=== PATIENT | male | born 1970 | race Caucasian/White ===

== ENCOUNTER 2021-04-02 02:31 | Emergency (ER) | payer BC ==
[~2021-04-02] VITALS: Ht 175.3 cm; Wt 86.4 kg
--- NOTE | 2021-04-02 02:42 | PHYS DOC ---
Past History Past Medical History: Kidney Stones General Adult EDM: Chief Complaint: FLANK PAIN HPI: HPI: ".. I woke up with this severe Rt. flank pain.. about 1/2 hr.. it radiated down in my groin...".." I hurt so bad I puked..." Patient is a 50 year old male who presents with above hx and complaints right flank pain that radiates to right groin area. Patient denies any intake bad food. Patient denies any problems with defecation or urination. Pain is rated 10 out of 10. Is associated with nausea. Patient has had previous episode of similar pain years ago which was diagnosed as a kidney stone. Patient denies any history immunosuppression. Patient denies any fever or chills. No recent travel. No intake of bad food. No history of trauma. Review of Systems: Review of Systems: Constitutional: Denies fever or chills Eyes: Denies change in visual acuity HENT: Denies nasal congestion or sore throat Respiratory: Denies cough or shortness of breath Cardiovascular: Denies chest pain or edema GI: Complains of severe right flank abdominal pain, nausea, vomiting,. Denies bloody stools or diarrhea : Denies dysuria Musculoskeletal: Complains of severe right flank back pain Integument: Denies rash Neurologic: Denies headache, focal weakness or sensory changes Endocrine: Denies polyuria or polydipsia Lymphatic: Denies swollen glands Psychiatric: Denies depression or anxiety Family History: Family History: Noncontributory to presentation Current Medications: Current Meds: See nursing for home meds Allergies: Allergies: No known drug allergies Physical Exam: PE: Constitutional: in acute distress, non-toxic appearance. [] HENT: Normocephalic, atraumatic, bilateral external ears normal, oropharynx moist, no oral exudates, nose normal. [] Eyes: PERRLA, EOMI, conjunctiva normal, no discharge. [] Neck: Normal range of motion, no tenderness, supple, no stridor. [] Cardiovascular: Tachycardia heart rate regular rhythm, no murmur []. Monitor shows a sinus tachycardia Lungs & Thorax: Bilateral breath sounds equal apex with few scattered wheezes on auscultation [] Abdomen: Bowel sounds decreased, soft, no tenderness, no masses, no pulsatile masses. Right flank back pain radiates to right lower abdomen. No findings of acute rebound. Skin: Warm, diaphoretic, no erythema, no rash. [] Back: No tenderness, right CVA tenderness. [] Extremities: No tenderness, no cyanosis, no clubbing, ROM intact, no edema. No psoas sign Neurologic: Alert and oriented X 3, normal motor function, normal sensory function, no focal deficits noted. [] Psychologic: Affect anxious, judgement normal, mood normal. [] EKG: EKG: [] Radiology/Procedures: Radiology/Procedures: [place] [address] IMAGING REPORT Signed PATIENT: JEFF CALLAWAY ACCOUNT: [id number] : 1970 LOCATION: ER AGE: 50 SEX: M EXAM STATUS: REG ER ORD. PHYSICIAN: MARILU LUBIN MD REASON: severe Rt. flank pain PROCEDURE: ACUTE ABDOMEN SERIES EXAMINATION: XR ABDOMEN COMP ACUTE CLINICAL HISTORY: Severe right flank pain EXAM DATE/TIME: 04/02/2021 3:04 AM COMPARISON: None FINDINGS: Lines, Tubes, and Devices: None. Cardiomediastinal Silhouette: Within normal limits. Lungs and Pleura: No evidence of focal airspace consolidation or pleural effusion. Pulmonary vasculature unremarkable. Bones and Soft Tissues: Degenerative changes of the thoracolumbar spine. Probable old bone graft harvest site along the left ilium. Abdomen: Nonspecific bowel gas pattern. No evidence of pneumoperitoneum. Tiny calcification in the right pelvis, compatible with a distal calculus. IMPRESSION: Tiny calcification of the right pelvis, compatible with a distal calculus. No evidence of acute cardiopulmonary abnormality. Electronically signed by: Kishan Huerta DO (04/02/2021 5:11 AM) [facility] DICTATED AND SIGNED BY: KISHAN HUERTA DO DATE: 04/02/21 0509 CC: MARILU LUBIN MD; PCP,NO ~MTH0 0 [][address] [address] IMAGING REPORT Signed PATIENT: JEFF CALLAWAY ACCOUNT: [id number] : 1970 LOCATION: ER AGE: 50 SEX: M EXAM STATUS: REG ER ORD. PHYSICIAN: MARILU LUBIN MD REASON: pain Rt. flank PROCEDURE: CT ABDOMEN PELVIS WO CONTRAST EXAMINATION: CT ABDOMEN+PELVIS WO CLINICAL HISTORY: Right flank pain TECHNIQUE: Non-IV contrast imaging of the abdomen and pelvis was performed using standard technique, scanning from just above the dome of the diaphragm to the symphysis pubis. Unenhanced imaging is limited for the evaluation of some intra-abdominal and pelvic pathology. CT Dose Reduction Employed: One or more of the following individualized dose reduction techniques were utilized for this examination: 1. Automated exposure control 2. Adjustment of the mA and/or kV according to patient size 3. Use of iterative reconstruction technique. COMPARISON: None FINDINGS: Partially visualized heart and lungs unremarkable. 2.5 cm cyst in the left hepatic lobe. Gallbladder, pancreas, spleen, and adrenal glands unremarkable. 4 mm calculus at the right ureterovesical junction with mild hydroureteronephrosis. No additional urinary calculi visualized. Nonspecific bilateral perinephric stranding. Decompressed urinary bladder suboptimally evaluated. Coarse central prostatic calcifications. No dilated bowel. Normal appendix. No abdominal aortic or iliac artery aneurysm. Vasectomy clips. Mild thoracolumbar degenerative changes. Probable old bone graft harvest site along the posterior left ilium. IMPRESSION: 4 mm calculus at the right ureterovesical junction with mild hydroureteronephrosis. Electronically signed by: Kishan Huerta DO (04/02/2021 4:22 AM) [facility] DICTATED AND SIGNED BY: KISHAN HUERTA DO DATE: 04/02/21 0417 CC: MARILU LUBIN MD; PCP,NO ~MTH0 0 Heart Score: C/O Chest Pain: N/A Risk Factors: Risk Factors: DM, Current or recent (<one month) smoker, HTN, HLP, family history of CAD, obesity. Risk Scores: Score 0 - 3: 2.5% MACE over next 6 weeks - Discharge Home Score 4 - 6: 20.3% MACE over next 6 weeks - Admit for Clinical Observation Score 7 - 10: 72.7% MACE over next 6 weeks - Early Invasive Strategies Course & Med Decision Making: Course & Med Decision Making Pertinent Labs and Imaging studies reviewed. (See chart for details) Patient stay on a clear fluid diet next couple days. Push fluids. Take Tylenol and ibuprofen for pain. For marked pain may take Vicoprofen up to 4 times a day. Take Zofran 8 mg up to 4 times a day for nausea and vomiting. Take Flomax 0.4 mg daily. Warned that this may cause dizziness and hypotension. Must push fluids. Patient save stone in the past. Patient follow-up primary care. Patient consider follow-up with urology. Patient return if any concerns. Impression: 1. Right renal colic 2. 4mm stone at UVJ with Hydronephrosis [] Dragon Disclaimer: Dragon Disclaimer: This electronic medical record was generated, in whole or in part, using a voice recognition dictation system. Departure Departure: Referrals: PCP,NO (PCP) Scripts Hydrocodone/Ibuprofen (HYDROCODONE-IBUPROFEN 7.5-200 ) 1 Each Tablet 2 TAB PO PRN Q6HRS PRN for PAIN, #30 TAB 0 Refills Prov: MARILU LUBIN MD 04/02/21 Ondansetron Hcl (ZOFRAN) 4 Mg Tablet 8 MG PO QIDPRN PRN for NAUSEA/VOMITING, #30 TAB Prov: MARILU LUBIN MD 04/02/21 Tamsulosin Hcl (FLOMAX) 0.4 Mg Cap.er.24h 0.4 MG PO DAILY for renal colic, #30 CAP.SR Prov: MARILU LUBIN MD 04/02/21 Dragon Disclaimer This chart was dictated in whole or in part using Voice Recognition software in a busy, high-work load, and often noisy Emergency Department environment. It may contain unintended and wholly unrecognized errors or omissions. MARILU LUBIN MD Apr 02, 2021 02:42
[2021-04-02] MEDS ORDERED: KETOROLAC 30 MG/ML VIAL. IVP ONE ×2 (02:45→03:30)
[2021-04-02] MEDS ORDERED: ONDANSETRON PF 4 MG/2 ML VIAL. IVP ONE (03:30)
[2021-04-02] MEDS ORDERED: IV RINGERS SOLUTION,LACTATED 1,000 ML IV SCH (03:30)
[2021-04-02] MEDS ORDERED: FAMOTIDINE 20 MG/2 ML VIAL IVP ONE (03:30)
[2021-04-02 03:51] LABS: BARBITURATES NEG (NEG); BENZODIAZEPINES NEG (NEG); CANNABINOIDS NEG (NEG); COCAINE NEG (NEG); METHADONE NEG (NEG); OPIATES NEG (NEG); PHENCYCLIDINE NEG (NEG)
[2021-04-02 03:55] LABS: AMPHETAMINE/METHAMPHETAMINE NEG (NEG)
[2021-04-02 04:00] LABS: BILIRUBIN,URINE NEG (NEG); CLARITY,URINE CLEAR; COLOR,URINE YELLOW; GLUCOSE,URINE NEG (NEG); NITRITE,URINE NEG (NEG); UROBILINOGEN,URINE 0.2 mg/dL (0.2 mg/dL)
[2021-04-02 04:01] LABS: BACTERIA,URINE 0 /HPF (0-FEW); SQUAMOUS EPITHELIAL CELL,UR OCC /LPF; WBC,URINE 0 /HPF (0-4)
[2021-04-02 04:03] LABS: BASO % 1 % (0-3); EOS % 1 % (0-3); HEMATOCRIT 44.1 % (39.0-53.0); HEMOGLOBIN 15.3 g/dL (13.0-17.5); LYMPH # 1.5 x10^3/uL (1.0-4.8); LYMPH % 16 % (24-48); MEAN CORPUSCULAR HEMOGLOBIN 30 pg (25-35); MEAN CORPUSCULAR HGB CONC 35 g/dL (31-37); MEAN CORPUSCULAR VOLUME 87 fL (79-100); MONO # 0.8 x10^3/uL (0.0-1.1); MONO % 9 % (0-9); NEUT # 6.8 x10^3uL (1.8-7.7); NEUT % 74 % (31-73); PLATELET COUNT 173 x10^3/uL (140-400); RED BLOOD COUNT 5.06 x10^6/uL (4.30-5.70); RED CELL DISTRIBUTION WIDTH 13.6 % (11.5-14.5); WHITE BLOOD COUNT 9.2 x10^3/uL (4.0-11.0)
[2021-04-02 04:16] LABS: CALCIUM 9.1 mg/dL (8.5-10.1); CREATININE 1.4 mg/dL (0.7-1.3); GFR 53.2; POTASSIUM 3.4 mmol/L (3.5-5.1)
--- NOTE | 2021-04-02 04:24 | RAD ---
EXAMINATION: CT ABDOMEN+PELVIS WO CLINICAL HISTORY: Right flank pain TECHNIQUE: Non-IV contrast imaging of the abdomen and pelvis was performed using standard technique, scanning from just above the dome of the diaphragm to the symphysis pubis. Unenhanced imaging is jimenez ited for the evaluation of some intra-abdominal and pelvic pathology. CT Dose Reduction Employed: One or more of the following individualized dose reduction techniques wer e utilized for this examination: 1. Automated exposure control 2. Adjustment of the mA and/or kV ac cording to patient size 3. Use of iterative reconstruction technique. COMPARISON: None FINDINGS: Partially visualized heart and lungs unremarkable. 2.5 cm cyst in the left hepatic lobe. Gallbladder, pancreas, spleen, and adrenal glands unremarkable. 4 mm calculus at the right ureterovesical junction with mild hydroureteronephrosis. No additional uri nary calculi visualized. Nonspecific bilateral perinephric stranding. Decompressed urinary bladder suboptimally evaluated. Coarse central prostatic calcifications. No dilated bowel. Normal appendix. No abdominal aortic or iliac artery aneurysm. Vasectomy clips. Mild thoracolumbar degenerative changes. Probable old bone graft harvest site along the posterior left ilium. IMPRESSION: 4 mm calculus at the right ureterovesical junction with mild hydroureteronephrosis. Electronically signed by: Kishan Hutton DO (04/02/2021 4:22 AM) [facility]
[2021-04-02] MEDS ORDERED: MORPHINE SULFATE 10 MG/ML SYRINGE. SQ ONE ×2 (04:30→06:00)
[2021-04-02] MEDS ORDERED: HYDR-1179 PO (04:53)
[2021-04-02] MEDS ORDERED: TAMS0.4C97 PO (04:53)
[2021-04-02] MEDS ORDERED: ONDA4TAB7 PO (04:53)
--- NOTE | 2021-04-02 05:14 | RAD ---
EXAMINATION: XR ABDOMEN COMP ACUTE CLINICAL HISTORY: Severe right flank pain EXAM DATE/TIME: 04/02/2021 3:04 AM COMPARISON: None FINDINGS: Lines, Tubes, and Devices: None. Cardiomediastinal Silhouette: Within normal limits. Lungs and Pleura: No evidence of focal airspace consolidation or pleural effusion. Pulmonary vasculat ure unremarkable. Bones and Soft Tissues: Degenerative changes of the thoracolumbar spine. Probable old bone graft harv est site along the left ilium. Abdomen: Nonspecific bowel gas pattern. No evidence of pneumoperitoneum. Tiny calcification in the ri ght pelvis, compatible with a distal calculus. IMPRESSION: Tiny calcification of the right pelvis, compatible with a distal calculus. No evidence of acute cardiopulmonary abnormality. Electronically signed by: Kishan Hutton DO (04/02/2021 5:11 AM) [facility]
[2021-04-02] MEDS ORDERED: TAMSULOSIN 0.4 MG CAP.ER.24H. PO ONE (05:30)
[2021-04-02] MEDS ORDERED: IV RINGERS SOLUTION,LACTATED 1,000 ML IV ONE (06:00)
[2021-04-02 06:18] VITALS: BP 132/79
[2021-04-02 07:28] LABS: ALBUMIN 4.5 g/dL (3.4-5.0); TOTAL PROTEIN 7.5 g/dL (6.4-8.2)
[2021-04-02 07:29] LABS: DIRECT BILIRUBIN 0.3 mg/dL (0.0-0.2); TOTAL BILIRUBIN 0.4 mg/dL (0.2-1.0)
== END 2021-04-02 06:20 | disposition home or self-care (01) ==
LOC: ER 02:31
DX: N13.2 Hydronephrosis with renal and ureteral calculous obstruction (principal); Z87.442 Personal history of urinary calculi
CPT/HCPCS: 36415; 74022; 74176; 80048; 80076; 80307; 81001; 82150; 83690; 85025; 96361; 96372; 96374; 96375; 99285; J1885; J2270; J2405; J3490; J7120